=== PATIENT | female | born 1995 | race Caucasian/White ===

== ENCOUNTER 2018-03-27 06:32 | Inpatient (IN) | payer BC ==
[2018-03-26 08:31] VITALS: BMI 37.8
[2018-03-27] MEDS ORDERED: BUPIVACAINE HCL/PF 0.5% (5MG/ML) 10 ML VIAL ONE (07:43)
[2018-03-27] MEDS ORDERED: ceFAZolin SODIUM 1 GM VIAL IVPB ONE (08:30)
[2018-03-27] MEDS ORDERED: ACETAMINOPHEN INJECTION 100 ML IVPB ONE (09:08)
[2018-03-27] MEDS ORDERED: BUPIVACAINE HCL/PF 0.5% (5MG/ML) 10 ML VIAL IJ ONE (09:49)
--- NOTE | 2018-03-27 10:07 | OP ---
Operative Note - Note: Operative Date: 03/27/18 Pre-Operative Diagnosis: Morbid Obesity. Diabetes Mellitus Operation: Laparoscopic Vertical Sleeve Gastrectomy. Wedge Biopsy of Left Lobe of Liver. Diagnostic Laparoscopy Findings: Greater curve sleeve gastrectomy performed with #[address] Wedge biopsy performed on enlarged left lobe of liver. Post-Operative Diagnosis: Same as Pre-op (Hepatomegaly) Surgeon: He Herrera Websphere Process Server Developer: Gus Cooley Anesthesia: General Specimens Removed: Greater curve of stomach. Wedge biopsy of enlarged left lobe of liver Estimated Blood Loss (mls): 30 Operative Report Dictated: Yes
[2018-03-27] MEDS ORDERED: FAMOTIDINE 20 MG/50 ML IVPB 20 MG/50 ML MG IVPB ONE (10:21)
[2018-03-27] MEDS ORDERED: FAMOTIDINE 20 MG PREMIXED IVPB IVPB ONE (10:21)
[2018-03-27] MEDS: ONDANSETRON 4 MG/2 ML VIAL IVPUSH PRN ×3 (10:30→19:43)
[2018-03-27] MEDS: METOCLOPRAMIDE HCL INJECTION 10 MG/2 ML VIAL IVPUSH SCH ×3 (10:30→21:59)
[2018-03-27] MEDS ORDERED: METOCLOPRAMIDE HCL INJECTION 10 MG/2 ML VIAL ONE (10:31)
[2018-03-27] MEDS ORDERED: ONDANSETRON 4 MG/2 ML VIAL ONE (10:32)
[2018-03-27 11:04] LABS: HEMATOCRIT 40.4 % (32.4-45.2); HEMOGLOBIN 13.1 GM/dL (10.7-15.3); MCH 28.6 pg (25.7-33.7); MCHC 32.5 g/dl (32.0-36.0); MEAN CELL VOLUME 88.1 fl (80-96); MEAN PLT VOLUME 9.4 fl (7.5-11.1); PLATELET COUNT 239 K/MM3 (134-434); RBC 4.59 M/mm3 (3.60-5.2); RDW 12.3 % (11.6-15.6); WHITE BLOOD COUNT 20.8 K/mm3 (4.0-10.0)
--- NOTE | 2018-03-27 11:05 | SURG ---
Surgery Battery Recharger Note Battery Recharger: Gus Cooley PA-C Date of Service: 03/27/18 Diagnosis: Morbid obesity, diabetes Procedure: Laparoscopic Vertical Sleeve Gastrectomy. Wedge Biopsy of Left Lobe of Liver. Diagnostic Laparoscopy I was present for the entirety of the operative procedure. For further detail, please refer to operative report.
[2018-03-27] MEDS ORDERED: ONDANSETRON 4 MG/2 ML VIAL IVPUSH PRN (11:10)
[2018-03-27] MEDS ORDERED: LACTATED RINGERS SOLUTION 1,000 ML IV SCH (11:15)
[2018-03-27 11:41] LABS: ALBUMIN 2.7 g/dl (3.4-5.0); ALK PHOS 60 U/L (45-117); ANION GAP 11 MMOL/L (8-16); BILIRUBIN,TOTAL 0.2 mg/dL (0.2-1.0); BLOOD UREA NITROGEN 13 mg/dL (7-18); CALCIUM 8.4 mg/dL (8.5-10.1); CHLORIDE 108 mmol/L (98-107); CO2 22 mmol/L (21-32); CREATININE 0.7 mg/dL (0.55-1.02); GLUCOSE,RANDOM 147 mg/dL (74-106); POTASSIUM 4.1 mmol/L (3.5-5.1); SGOT/AST 20 U/L (15-37); SGPT/ALT 23 U/L (12-78); SODIUM 141 mmol/L (136-145); TOT PROT 6.6 g/dl (6.4-8.2)
--- NOTE | 2018-03-27 11:43 | OP ---
DATE OF OPERATION: 03/27/2018 PREOPERATIVE DIAGNOSIS: 1. Morbid obesity 2. Diabetes mellitus. POSTOPERATIVE DIAGNOSIS: 1. Morbid obesity 2. Diabetes mellitus. 3. Hepatomegaly. PROCEDURE PERFORMED: 1. Laparoscopic vertical sleeve gastrectomy. 2. Wedge biopsy of the left lobe of the liver. 3. Diagnostic laparoscopy. OPERATING SURGEON: He Herrera MD THREAD GRINDER: JOHN Taylor ANESTHESIA: General. OPERATIVE PROCEDURE: The patient was brought into the operating room, placed on the OR table in supine position. All precautions were taken initially including padding for the back and the feet, and Venodyne boots were placed on both lower extremities. At that point, the abdomen was prepped and draped in the usual manner. A Veress needle was placed in the left upper quadrant, and a pneumoperitoneum was established. A No. 12 bladeless trocar was placed in the left upper quadrant. Through that trocar, a laparoscopic camera was placed. Under direct vision, a No. 15 bladeless trocar was placed in the midline in a supraumbilical position followed by a No. 5 bladeless trocar in the right upper quadrant and a No. 5 bladeless trocar below the left costal margin. A Nkechi Liver Retractor was then placed in the epigastrium to retract the left lobe of the liver. The left lobe was noted to be extremely enlarged, somewhat difficult to retract. The liver retractor had to be placed all the way to the left of the lateral side in order to expose the upper part of the stomach by the spleen. At this point, the patient was placed in a 20-degree reverse Trendelenburg position by Anesthesia. The distal part of the stomach was noted, and the pylorus was found. Then, 6 cm were measured proximally from that point, and here, the operating surgeon lifted the stomach towards the anterior abdominal wall, and the magistrate assistant surgeon retracted the gastrocolic ligament inferiorly. The LigaSure device was used to dissect the gastrocolic ligament off the greater curve of the stomach. This continued progressively in a superior direction and vertical, and the short gastric vessels were divided off the stomach with the LigaSure device. This continued until the final short gastric vessel between the superior pole of the spleen and the proximal fundus was divided. At this juncture, Anesthesia advanced the No. 40 bougie. With the bougie held along the lesser curve of stomach, a series of marya was performed, the first two being black-load marya, 6 cm in length, along the bougie. This was followed by a series of purple-load marya, also 6 cm in length and also along the bougie. When the final staple was fired in the left upper quadrant, the greater curve was now completely detached from the lesser curve. It should be noted that prior to firing each staple, both the anterior and posterior delacruz were checked and they were equal, and then the area of the esophagogastric junction, approximately 1 to 1.5 cm serosa remained on the anterior and posterior surfaces. At this juncture, saline was placed around the staple line of the remaining lesser curve, and anesthesia injected air into the bougie and filled it to 35 mm of pressure. This showed that there was flow all the way down to the pylorus, so, no obstruction and no leaks were noted. At this point, attention was directed to the enlarged left lobe of the liver. The LigaSure was used to take a wedge biopsy off the inferior edge of the left lobe of the liver. This was done through the capsule and parenchyma, and a triangular piece of liver was then sent off the field as specimen to Pathology. At this point, any slight bleeding parenchyma was controlled with the electrocautery portion of the LigaSure. At this juncture, the resected greater curve was removed through the No. 15 trocar site and sent off the field as specimen to Pathology. Under direct vision, all trocars were removed, and a pneumoperitoneum was released. The No. 15 and No. 12 trocar sites were closed with 3-0 Vicryl in the subcutaneous tissues, and all trocar sites were closed with 4-0 Biosyn in subcuticular fashion. Dressings were applied. Patient awoke from anesthesia and transferred out of the operating room to the recovery room in stable condition. ANESTHESIA FOR CASE: General. SURGEON: He Herrera MD THREAD GRINDER: JOHN Taylor EXPECTED BLOOD LOSS: 30 mL. Patient transferred to the recovery room in stable condition. Giovany BARAJAS/[id number]
[2018-03-27] MEDS: SODIUM CHLORIDE 1,000 ML IV SCH ×2 (14:00→14:44)
[2018-03-27] MEDS: FAMOTIDINE 20 MG/50 ML IVPB 20 MG/50 ML MG IVPB SCH ×2 (14:37→21:58)
[2018-03-27] MEDS: MORPHINE SULFATE 2 MG/ML VIAL IVPUSH PRN ×2 (15:50→20:09)
[2018-03-27] MEDS: ENOXAPARIN NA (PORCINE) 40 MG/0.4 ML DISP.SYRIN SQ SCH (21:58)
[2018-03-28] MEDS: METOCLOPRAMIDE HCL INJECTION 10 MG/2 ML VIAL IVPUSH SCH ×2 (03:47→09:15)
[2018-03-28 06:52] LABS: HEMATOCRIT 37.4 % (32.4-45.2); HEMOGLOBIN 12.5 GM/dL (10.7-15.3); MCHC 33.3 g/dl (32.0-36.0); MEAN CELL VOLUME 87.1 fl (80-96); MEAN PLT VOLUME 9.6 fl (7.5-11.1); PLATELET COUNT 219 K/MM3 (134-434); RBC 4.29 M/mm3 (3.60-5.2); RDW 12.2 % (11.6-15.6); WHITE BLOOD COUNT 14.9 K/mm3 (4.0-10.0)
[2018-03-28 07:35] LABS: CHLORIDE 106 mmol/L (98-107); POTASSIUM 4.3 mmol/L (3.5-5.1); SODIUM 140 mmol/L (136-145)
[2018-03-28 07:46] LABS: ALBUMIN 2.5 g/dl (3.4-5.0); ALK PHOS 53 U/L (45-117); ANION GAP 8 MMOL/L (8-16); BILIRUBIN,TOTAL 0.3 mg/dL (0.2-1.0); BLOOD UREA NITROGEN 10 mg/dL (7-18); CALCIUM 8.3 mg/dL (8.5-10.1); CO2 26 mmol/L (21-32); CREATININE 0.6 mg/dL (0.55-1.02); GLUCOSE,RANDOM 105 mg/dL (74-106); SGOT/AST 22 U/L (15-37); SGPT/ALT 27 U/L (12-78); TOT PROT 6.3 g/dl (6.4-8.2)
[2018-03-28] MEDS: ENOXAPARIN NA (PORCINE) 40 MG/0.4 ML DISP.SYRIN SQ SCH (09:14)
[2018-03-28] MEDS: FAMOTIDINE 20 MG/50 ML IVPB 20 MG/50 ML MG IVPB SCH (09:15)
[2018-03-28] MEDS: MORPHINE SULFATE 2 MG/ML VIAL IVPUSH PRN (12:46)
[2018-03-28] MEDS ORDERED: oxyCODONE HCL 5 MG TABLET PO PRN (13:37)
[2018-03-28] MEDS ORDERED: ACETAMINOPHEN 325 MG TABLET (FP) PO PRN (13:37)
[2018-03-28] MEDS ORDERED: SODIUM CHLORIDE 1,000 ML IV SCH (13:45)
[2018-03-28 14:07] VITALS: BP 136/82; PULSE 89; TEMP 98.3
--- NOTE | 2018-03-28 14:13 | PN ---
Progress Note (short form) - Note Progress Note: POD#1 Afebrile; VSS Pt doing well Tolerating PO clear liquids- 3 oz PO TID P/E- Abd- all trocar sites clean, dry UGI- no leak, no extravasation WBC-14.9 H/H-12.5/37.4 P- D/C pt home PO clear liquids- 3 oz PO 4-5 times per day Ambulate at home F/U in 5 days
--- NOTE | 2018-03-28 14:38 | DS ---
DATE OF ADMISSION: 03/27/2018 DATE OF DISCHARGE: 03/28/2018 HISTORY OF PRESENT ILLNESS AND HOSPITAL COURSE: The patient is a 22-year-old woman with a history of morbid obesity for many years despite multiple attempts at dietary weight loss. She was admitted to [facility] on March 27, 2018, for elective sleeve gastrectomy surgery. The details of the operation are described in the operative note of that day. Postoperatively the patient was sent to the recovery room, where she was stabilized and then sent to the 4th floor on telemetry monitoring. She remained stable overnight, with occasional bouts of nausea, but this was not unusual in the first 24 hours after surgery. The following morning she was sent to the Radiology Department, where a Gastrografin swallow showed no leakage from the marya and also the contrast into the small bowel showing no obstruction. She returned to the floor, where she received 2 ounces of clear liquids and also sips of water, and tolerated it all well. In the afternoon, with the patient having normal vital signs, her pulse rate is approximately 88 to 98, which is her normal baseline. Normal blood pressure, and her labs being normal with hemoglobin 12.5 and hematocrit 37.4. She was given full instructions for discharge home. The patient was instructed to return to the bariatric service in 5 days for followup and further dietary instruction. TERESSA CRUMP M.D. [id number] cc: IAN GOLDSMITH MD
--- NOTE | 2018-03-28 16:59 | PN ---
Progress Note (short form) - Note Progress Note: Anesthesia post op note, POD#1 S/P gastric sleeve.. VSS. No apparent post anesthesia complications. Signed off.
--- NOTE | 2018-03-30 16:38 | PATH ---
Surgical Pathology Report Patient Name: LUCI RIVERA Med. Rec. #: [id number] /Age/Gender: 1995 (Age: 22) / F Account: [id number] Location: 4 W TELEMETRY U Taken: 03/27/2018 Received: 03/27/2018 Reported: 03/30/2018 Physicians: He Herrera M.D. Specimen(s) Received A: GREATER CURVATURE STOMACH B: LIVER BIOPSY Clinical History Morbid obesity Final Diagnosis A. STOMACH, GREATER CURVATURE, LAPAROSCOPIC VERTICAL SLEEVE GASTRECTOMY: PORTION OF STOMACH WITH MILD CHRONIC GASTRITIS. IMMUNOHISTOCHEMICAL STAIN FOR H. PYLORI IS NEGATIVE. B. LIVER, BIOPSY: LIVER PARENCHYMA WITHOUT SIGNIFICANT PATHOLOGIC FINDINGS. NO SIGNIFICANT STEATOSIS IDENTIFIED. FOCAL MILD INCREASE IN IRON NOTED ON PERFORMED SPECIAL STAIN. NO INCREASE IN FIBROSIS ON PERFORMED TRICHROME SPECIAL STAIN. Comment: Subcapsular biopsy with thermal artifact. Electronically Signed Elvira Grijalva M.D. Gross Description A. Received in formalin, labeled "greater curvature of stomach," is a 51 gram, 14.0 x 3.8 x 2.5 cm. portion of stomach with a stapled margin of resection. The serosa is barragan-acuña with minimal attached fat. The mucosa is barragan-pink with normal folds. No mucosal masses are identified. Optical Worker sections are submitted in one cassette. B. Received in formalin labeled "liver biopsy," is a 2.2 x 1.4 x 0.5 cm barragan portion of soft tissue, consistent with a liver wedge. The specimen is bisected and entirely submitted in one cassette. 03/27/2018 saudi03/27/2018
== END 2018-03-28 15:52 | disposition home or self-care (01) | DRG 621 ==
LOC: JSAMEDAYSX 06:32 → EDSTATUS 12:00 → J4W 15:07
PROVIDERS: ADMIT Surgery; ATTEND Surgery
PROC: 0FB24ZX Excision of Left Lobe Liver, Percutaneous Endoscopic Approach, Diagnostic (ICD-10-PCS; 2018-03-27)
PROC: 0DB64Z3 Excision of Stomach, Percutaneous Endoscopic Approach, Vertical (ICD-10-PCS; principal; 2018-03-27 08:00)
DX: E66.01 Morbid (severe) obesity due to excess calories (principal); Z68.37 Body mass index [BMI] 37.0-37.9, adult; E11.9 Type 2 diabetes mellitus without complications; R16.0 Hepatomegaly, not elsewhere classified
CPT/HCPCS: 36415; 74241-TC-FY; 80053; 82962; 85027; 86850; 86900; 86901; 88307-TC; 94760; J0131; J7030